=== PATIENT | male | born 1975 | race Caucasian/White ===

== ENCOUNTER 2022-05-12 11:53 | Emergency (ER) | payer OTHER ==
[~2022-05-12] VITALS: Ht 177.8 cm; Wt 103.6 kg
[~2022-05-12 11:53] MED LIST: BACTRIM DS TAB1 EACH PO; CEPHALEXIN500 MG PO; FLUOXETINE HCL20 MG PO
[2022-05-12] MEDS ORDERED: HYDROCODON-ACE1 EA11 PO (15:42)
[2022-05-12] MEDS ORDERED: CEPHALEXIN500 M1 PO (15:42)
== END 2022-05-12 16:06 | disposition home or self-care (01) ==
LOC: ED 11:53
DX: L02.414 Cutaneous abscess of left upper limb (principal); F17.200 Nicotine dependence, unspecified, uncomplicated
CPT/HCPCS: 10060; 36415; 80048; 85025; 99283-25; J1170; J3370; J7060